=== PATIENT | female | born 1940 | race Caucasian/White ===

== ENCOUNTER 2019-04-04 11:11 | Emergency (ER) | payer MEDICARE, BC ==
--- OUTSIDE RECORDS SUMMARY | 2019-04-04 11:24 | XMS REPORT | Continuity of Care Document ---
:1940 External Reference #:[id number] Author Name Masha Mirza M.D. 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 Onset: 12/13/2010 Type 2 diabetes mellitus Masha Mirza M.D. Onset: 12/13/2010 Hyperlipidemia Masha Mirza M.D. Onset: 12/13/2010 Hypothyroidism (Aquired) Masha Mirza M.D. Onset: 02/17/2014 Varicose veins of lower extremity Masha Mirza M.D. Onset: 02/17/2014 Gastroenteritis Masha Mirza M.D. Onset: 02/17/2014 Acute Bronchitis Masha Mirza M.D. Onset: 08/09/2014 Social History Type Date Description Comments Sex Unknown Tobacco Use Start: Unknown End: Unknown Former Cigarette Smoker Cigarette Use Former Cigarette Smoker 1-5 Cigarettes Daily ETOH Use Consumes 1 glass of wine per day Tobacco Use Start: Unknown End: Unknown Patient is a former smoker Smoking Status Reviewed: 01/02/18 Patient is a former smoker Allergies, Adverse Reactions, Alerts Description No Known Drug Allergies Medications Active Medications SIG Qnty Indications Ordering Date Provider Dicyclomine HCL take one 30caps 564.1 Masha Mirza, 11/10/2018 10mg Capsules capsule by M.D. mouth three times A day as needed Atorvastatin Calcium tab 1 by mouth 90tabs E78.2 Masha Mirza, 12/09/2017 40mg Tablets every day M.D. Amlodipine Besylate 1 by mouth 90tabs Masha Mirza, 09/20/2017 10mg Tablets every day M.D. Glucosamine 2 times daily Masha Mirza, 09/20/2017 500mg Tablets by mouth M.D. Hydrochlorothiazide 1 by mouth 90tabs Masha Mirza, 09/20/2017 25mg Tablets every day M.D. Enalapril Maleate 1 by mouth 180tabs Masha Mirza, 09/20/2017 10mg Tablets twice every day M.D. Buspirone HCL 1 by mouth 60tabs F06.4 Masha Mirza, 09/20/2017 5mg Tablets twice a day as M.D. needed Sphygmomanometer Aneroid as directed 1units I11.9 Masha Mirza, 09/20/2017 Manual Blood Pressure M.D. Monitor [facility] Vitamin D 1 po qd 90caps 733.99 Masha Mirza, 05/08/2010 1000Unit Capsules M.D. Melatonin Masha Mirza, 07/19/2008 1mg Capsules M.D. Calcium Carbonate 1 PO tid 0tabs Masha Mirza, 02/19/2007 500mg Tablets M.D. Cranberry Urinary Comfort Unknown [id number] Capsules Acidophilus one daily Unknown 100mg Tablet Aspirin Adult Low Dose 1 by mouth 100tabs Masha Mirza, 81mg every day M.D. Tablets DR Fish Oil 1 by mouth a Unknown 500mg Capsules day Vitamin C 2 tablet daily Unknown 500mg Tablets Immunizations CPT Code Status Date Vaccine Lot # [id number] Given 05/28/2018 Influenza Virus (Afluria) Split Virus 3 Years Of Age And Older Q2035 Given 05/28/2018 Influenza Virus (Afluria) Split Virus 3 Years [id number] Of Age And Older 72136 Given 05/28/2018 Influenza Virus Vaccine, Quadrivalent, Split, Preservative Free Q2035 Given 05/08/2017 Influenza Virus (Afluria) Split Virus 3 Years Of Age And Older Q2035 Given 05/07/2017 Influenza Virus (Afluria) Split Virus 3 Years Of Age And Older Q2037 Given 04/18/2016 Influenza Vaccine (Fluvirin) 3 Years Of Age Or [id number] Older Q2037 Given 05/20/2014 Influenza Vaccine (Fluvirin) 3 Years Of Age Or Older Q2038 Given 04/22/2013 Influenza Vaccine (Fluzone) Administered Age 3 And Older Q2038 Given 04/22/2013 Influenza Vaccine (Fluzone) Administered Age 3 [id number] And Older Q2037 Given 05/29/2012 Influenza Vaccine (Fluvirin) 3 Years Of Age Or [id number] Older Q2036 Given 04/11/2011 Flulaval [id number] 50614 Given 06/27/2010 Influenza Vaccine [id number] 76883 Given 04/28/2009 Influenza Vaccine 65575 Given 07/27/2008 Typhoid Inj- Capsular Polysaccharide [id number] Intramuscular Use 49797 Given 07/27/2008 Hepatitis A Vaccine [id number] 19271 Given 07/13/2008 Zostavax [id number] 50224 Given 07/05/2008 Influenza Vaccine 28155 73426 Given 06/23/2007 Influenza Vaccine 74848 Given 06/23/2007 Influenza Vaccine [id number] 82958 Given 12/02/2006 Tetanus And Diptheria Toxiods td 154 86382 Given 12/02/2006 Tetanus Shot 57049 Given 06/12/2006 Influenza Vaccine 07340 41510 Given 06/14/2005 Influenza Vaccine [id number] 39087 Given 06/12/2004 Pneumovax Polyvalent Inj Im Vital Signs Date Vital Result Comment 03/24/2019 11:02am BP Systolic 150 mmHg BP Diastolic 60 mmHg BP Systolic Recheck 144 mmHg BP Diastolic Recheck 66 mmHg Heart Rate 76 /min Height 68 inches 5'8" O2 % BldC Oximetry 96 % 12/15/2018 2:51pm BP Systolic 152 mmHg BP Diastolic 74 mmHg BP Systolic Recheck 146 mmHg BP Diastolic Recheck 66 mmHg Height 68 inches 5'8" Weight 224.00 lb BMI (Body Mass Index) 34.1 kg/m2 Results Description No Information Available Procedures Date Code Description Status 12/01/2015 10932089 Mammogram Completed 05/26/2015 325781545 Bone Mineral Density Test Completed 03/02/2011 71408608 Colonoscopy Completed Medical Devices Description No Information Available Encounters Type Date Location Provider Dx Diagnosis Office Visit 03/24/2019 Main Office Masha Mirza M.D. R92.8 Ot abn and 10:45a inconclusive findings on dx imaging of breast I11.9 Hypertensive heart disease without heart failure Office Visit 12/15/2018 2:45p Main Office Masha Mirza I11.9 Hypertensive heart M.D. disease without heart failure E11.9 Type 2 diabetes mellitus without complications Office Visit 12/01/2018 11:30a Main Office Masha Mirza I11.9 Hypertensive heart M.D. disease without heart failure Assessments Date Code Description Provider 03/24/2019 R92.8 Other abnormal and inconclusive findings on Masha Mirza M.D. diagnostic imaging of breast 03/24/2019 I11.9 Hypertensive heart disease without heart failure Masha Mirza M.D. 12/15/2018 I11.9 Hypertensive heart disease without heart failure Masha Mirza M.D. 12/15/2018 E11.9 Type 2 diabetes mellitus without complications Masha Mirza M.D. 12/01/2018 I11.9 Hypertensive heart disease without heart failure Masha Mirza M.D. Plan of Treatment Future Appointment(s):06/16/2019 8:00 am - Nurse at Main Qyohck8206/24/2019 11: 00 am - Masha Mirza M.D. at Main Jqtpmh9703/24/2019 - Masha Mirza M.D.R92.8 Other abnormal and inconclusive findings on diagnostic imaging of breastComments :recheck mammogram right breast discussed referral to breast center she is comfortable with waiting at his xblmuE32.9 Hypertensive heart disease without heart failureNew Labs:General Health Panel [facility], Ordered: 03/24/19Lipid Panel, Ordered: 03/24/19 Functional Status Description No Information Available Mental Status Description No Information Available Referrals Description No Information Available
--- OUTSIDE RECORDS SUMMARY | 2019-04-04 11:24 | XMS REPORT | Continuity of Care Document ---
:1940 External Reference #:[id number] Author Name Masha Mirza M.D. 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 Monitor [facility] Vitamin D 1 po qd 90caps 733.99 Masha Mirza, 05/08/2010 1000Unit Capsules M.D. Melatonin Masha Mirza, 07/19/2008 1mg Capsules M.D. Calcium Carbonate 1 PO tid 0tabs Masha Mirza, 02/19/2007 500mg Tablets M.D. Cranberry Urinary Comfort Unknown [id number] Capsules Acidophilus one daily Unknown 100mg Tablet [...] Influenza Virus (Afluria) Split Virus 3 Years [id number] Of Age And Older 24356 Given 05/28/2018 Influenza Virus Vaccine, Quadrivalent, Split, Preservative Free Q2035 Given 05/08/2017 Influenza Virus (Afluria) Split Virus 3 Years Of Age And Older Q2035 Given 05/07/2017 Influenza Virus (Afluria) Split Virus 3 Years Of Age And Older Q2037 Given 04/18/2016 Influenza Vaccine (Fluvirin) 3 Years Of Age Or [id number] Older Q2037 Given 05/20/2014 Influenza Vaccine (Fluvirin) 3 Years Of Age Or Older Q2038 Given 04/22/2013 Influenza Vaccine (Fluzone) Administered Age 3 And Older Q2038 Given 04/22/2013 Influenza Vaccine (Fluzone) Administered Age 3 [id number] And Older Q2037 Given 05/29/2012 Influenza Vaccine (Fluvirin) 3 Years Of Age Or [id number] Older Q2036 Given 04/11/2011 Flulaval [id number] 81059 Given 06/27/2010 Influenza Vaccine [id number] 70202 Given 04/28/2009 Influenza Vaccine 81069 Given 07/27/2008 Typhoid Inj- Capsular Polysaccharide A3005-8 Intramuscular Use 20951 Given 07/27/2008 Hepatitis A Vaccine [id number] 80197 Given 07/13/2008 Zostavax [id number] 08918 Given 07/05/2008 Influenza Vaccine 35784 22140 Given 06/23/2007 Influenza Vaccine 75860 Given 06/23/2007 Influenza Vaccine [id number] 26660 Given 12/02/2006 Tetanus And Diptheria Toxiods td 154 96059 Given 12/02/2006 Tetanus Shot 98842 Given 06/12/2006 Influenza Vaccine 03043 28902 Given 06/14/2005 Influenza Vaccine [id number] 58913 Given 06/12/2004 Pneumovax Polyvalent Inj Im Vital Signs Date Vital Result Comment 03/24/2019 11:02am BP Systolic 150 mmHg BP Diastolic 60 mmHg Heart Rate 76 /min Height 68 inches 5'8" O2 % BldC Oximetry 96 % 12/15/2018 2:51pm BP Systolic 152 mmHg BP Diastolic 74 mmHg BP Systolic Recheck 146 mmHg BP Diastolic Recheck 66 mmHg Height 68 inches 5'8" Weight 224.00 lb BMI (Body Mass Index) 34.1 kg/m2 Results Description No Information Available Procedures Date Code Description Status 12/01/2015 35020879 Mammogram Completed 05/26/2015 230389972 Bone Mineral Density Test Completed 03/02/2011 62463696 Colonoscopy Completed Medical Devices Description No Information Available Encounters Type Date Location Provider Dx Diagnosis Office Visit 12/15/2018 Main Office Masha Mirza M.D. I11.9 Hypertensive heart 2:45p disease without heart failure E11.9 Type 2 diabetes mellitus without complications Office Visit 12/01/2018 11:30a Main Office Masha Mirza, I11.9 Hypertensive heart M.D. disease without heart failure Assessments Date Code Description Provider 12/15/2018 I11.9 Hypertensive heart disease without heart failure Masha Mirza M.D. 12/15/2018 E11.9 Type 2 diabetes mellitus without complications Masha Mirza M.D. 12/01/2018 I11.9 Hypertensive heart disease without heart failure Masha Mirza M.D. Plan of Treatment No Information Available Functional Status Description No Information Available Mental Status Description No Information Available Referrals Description No Information Available
--- OUTSIDE RECORDS SUMMARY | 2019-04-04 11:24 | XMS REPORT | Continuity of Care Document ---
:1940 External Reference #:[id number] Author Name Masha Mirza M.D. 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 Monitor [facility] [place] Vitamin D 1 po qd 90caps 733.99 Masha Mirza, 05/08/2010 1000Unit Capsules M.D. Melatonin Masha Mirza, 07/19/2008 1mg Capsules M.D. Calcium Carbonate 1 PO tid 0tabs Masha Mirza, 02/19/2007 500mg Tablets M.D. Cranberry Urinary Comfort Unknown [id number] Capsules Acidophilus one daily Unknown 100mg Tablet [...] Influenza Virus (Afluria) Split Virus 3 Years [id number] Of Age And Older 05137 Given 05/28/2018 Influenza Virus Vaccine, Quadrivalent, Split, Preservative Free Q2035 Given 05/08/2017 Influenza Virus (Afluria) Split Virus 3 Years Of Age And Older Q2035 Given 05/07/2017 Influenza Virus (Afluria) Split Virus 3 Years Of Age And Older Q2037 Given 04/18/2016 Influenza Vaccine (Fluvirin) 3 Years Of Age Or [id number] Older Q2037 Given 05/20/2014 Influenza Vaccine (Fluvirin) 3 Years Of Age Or Older Q2038 Given 04/22/2013 Influenza Vaccine (Fluzone) Administered Age 3 And Older Q2038 Given 04/22/2013 Influenza Vaccine (Fluzone) Administered Age 3 [id number] And Older Q2037 Given 05/29/2012 Influenza Vaccine (Fluvirin) 3 Years Of Age Or [id number] Older Q2036 Given 04/11/2011 Flulaval [id number] 11219 Given 06/27/2010 Influenza Vaccine [id number] 35241 Given 04/28/2009 Influenza Vaccine 21165 Given 07/27/2008 Typhoid Inj- Capsular Polysaccharide X3546-8 Intramuscular Use 75166 Given 07/27/2008 Hepatitis A Vaccine [id number] 92758 Given 07/13/2008 Zostavax [id number] 44584 Given 07/05/2008 Influenza Vaccine 04468 13653 Given 06/23/2007 Influenza Vaccine 62940 Given 06/23/2007 Influenza Vaccine [id number] 48844 Given 12/02/2006 Tetanus And Diptheria Toxiods td 154 79175 Given 12/02/2006 Tetanus Shot 02807 Given 06/12/2006 Influenza Vaccine 04542 69484 Given 06/14/2005 Influenza Vaccine [id number] 48616 Given 06/12/2004 Pneumovax Polyvalent Inj Im Vital [...] Available Procedures Date Code Description Status 12/01/2015 [id number] Mammogram Completed 05/26/2015 855085738 Bone Mineral Density Test Completed 03/02/2011 99123112 Colonoscopy Completed Medical Devices Description No Information Available Encounters Type Date Location Provider Dx Diagnosis Office Visit 03/24/2019 Main Office Masha Mirza M.D. R92.8 Oth abn and 10:45a inconclusive findings on dx imaging of breast Office Visit 12/15/2018 Main Office Masha Mirza M.D. I11.9 Hypertensive heart 2:45p disease without heart failure E11.9 Type 2 diabetes mellitus without complications Office Visit 12/01/2018 11:30a Main Office Masha Mirza I11.9 Hypertensive heart M.DKatya disease without heart failure Assessments Date Code Description Provider 03/24/2019 R92.8 Other abnormal and inconclusive findings on Masha Mirza M.D. diagnostic imaging of breast 12/15/2018 I11.9 Hypertensive heart disease without heart failure Masha Mirza M.D. 12/15/2018 E11.9 Type 2 diabetes mellitus without complications Masha Mirza M.D. 12/01/2018 I11.9 Hypertensive heart disease without heart failure Masha Mirza M.D. Plan of Treatment Future Appointment(s):06/16/2019 8:00 am - Nurse at Main Esfuay4006/24/2019 11: 00 am - Masha Mirza M.D. at Main Jadttz6303/24/2019 - Masha Mirza M.D.R92.8 Other abnormal and inconclusive findings on diagnostic imaging of breastComments :recheck mammogram right breast discussed referral to breast center she is comfortable with waiting at his point Functional Status Description No Information Available Mental Status Description No Information Available Referrals Description No Information Available
[2019-04-04 11:54] VITALS: BP 160/68
--- NOTE | 2019-04-04 12:14 | UC ---
Skin Complaint HPI - HPI Summary HPI Summary: Pt c/o increased redness and tenderness at base of left thumb. Pt states that she noticed last night that along the base of her left thumb nail slight swelling and mild erythema that now has spread to left wrist. Pt is concerned that she may have cellulitis because "she gets it easily" . Pt had her nails "done 4 days ago. - History of Current Complaint Chief Complaint: UCSkin Time Seen by Provider: 04/04/19 11:45 Stated Complaint: SKIN CONCERN Hx Obtained From: Patient ?: No Onset/Duration: Sudden Onset, Lasting Days, Still Present, Worse Since - onset Skin Exposure Onset/Duration: Days Ago Timing: Constant Onset Severity: Mild Current Severity: Mild Pain Intensity: 0 Location: Discrete - left thumb and wrist Character: Redness, Painful Aggravating Factor(s): Touch Alleviating Factor(s): Nothing Associated Signs & Symptoms: Positive: Tenderness - Allergy/Home Medications Allergies/Adverse Reactions: Allergies Allergy/AdvReac Type Severity Reaction Status Date / Time Penicillins Allergy Rash Verified 04/04/19 11:37 Home Medications: Home Medications Apixaban* [Eliquis*] 5 mg PO BID 04/04/19 [History Confirmed 04/04/19] Atorvastatin* [Lipitor 40 MG*] 40 mg PO DAILY 04/04/19 [History Confirmed ] Enalapril TAB* [Vasotec TAB*] 10 mg PO DAILY 04/04/19 [History Confirmed ] Glucosamine HCl 500 mg PO DAILY 04/04/19 [History Confirmed 04/04/19] Hydrochlorothiazide TAB* [Hydrodiuril TAB*] 25 mg PO DAILY 04/04/19 [History Confirmed 04/04/19] amLODIPine TAB* [Norvasc 5 mg TAB*] 10 mg PO DAILY 04/04/19 [History Confirmed 04/04/19] PMH/Surg Hx/FS Hx/Imm Hx Previously Healthy: Yes Cardiovascular History: Cardiac Disease, Other - loop monitor, had CVA - Surgical History Surgical History: Yes Surgery Procedure, Year, and Place: LOOP IMPLANT, MAR 2019 - Family History Known Family History: Positive: Cardiac Disease - Social History Occupation: Retired Lives: With Family Alcohol Use: Daily Alcohol Amount: 1 GLASS WINE/DAILY Substance Use Type: None Smoking Status (MU): Never Smoked Tobacco Have You Smoked in the Last Year: No Review of Systems All Other Systems Reviewed And Are Negative: Yes Constitutional: Positive: Negative Skin: Positive: Other - erythema Eyes: Positive: Negative ENT: Positive: Negative Respiratory: Positive: Negative Cardiovascular: Positive: Negative Gastrointestinal: Positive: Negative Genitourinary: Positive: Negative Motor: Positive: Negative Neurovascular: Positive: Negative Musculoskeletal: Positive: Negative Neurological: Positive: Negative Psychological: Positive: Negative Is Patient Immunocompromised?: No Physical Exam Triage Information Reviewed: Yes Appearance: Well-Appearing Vital Signs: Initial Vital Signs Temp 98.4 F 04/04/19 11:38 Pulse 71 04/04/19 11:38 Resp 16 04/04/19 11:38 BP 160/68 04/04/19 11:38 Pulse Ox 99 04/04/19 11:38 Vital Signs Reviewed: Yes Eye Exam: Normal ENT Exam: Normal Dental Exam: Normal Neck exam: Normal Respiratory Exam: Normal Cardiovascular Exam: Normal Cardiovascular: Positive: Murmur:Sys:Grade _?_/ Musculoskeletal: Positive: Edema @ - mild swelling at base of left thumb fingernail Neurological Exam: Normal Psychological Exam: Normal Skin Exam: Other - mild erythema base of left thumb fingernail lateral aspect that extends to proximal wrist. Course/Dx - Differential Diagnoses - Skin Complaint Differential Diagnoses: Cellulitis, Other - paronychia - Diagnoses Provider Diagnosis: Cellulitis Discharge ED - Sign-Out/Discharge Documenting (check all that apply): Patient Departure All imaging exams completed and their final reports reviewed: No Studies - Discharge Plan Condition: Stable Disposition: HOME Prescriptions: Cephalexin CAP* [Keflex 500 CAP*] 500 mg PO Q6H #40 cap Patient Education Materials: Cellulitis (ED) Referrals: Masha Mirza MD [Primary Care Provider] - If Needed Additional Instructions: Please follow up with your PCP as needed. - Billing Disposition and Condition Condition: STABLE Disposition: Home - Attestation Statements Provider Attestation: Per institutional requirements, I have reviewed the chart, however, I was not consulted specifically or made aware of this patient by the midlevel provider. I did not personally evaluate, interact with , or disposition this patient.
== END 2019-04-04 12:22 | disposition home or self-care (01) ==
LOC: UCCORT 11:11
DX: L03.012 Cellulitis of left finger (principal); Z88.0 Allergy status to penicillin
CPT/HCPCS: 99212; G0463